=== PATIENT | female | born 1985 | race Caucasian/White ===

== ENCOUNTER 2020-05-24 18:19 | Emergency (ER) | payer OTHER ==
[~2020-05-24] VITALS: Ht 162.6 cm; Wt 120.8 kg
[2020-05-24 19:40] VITALS: Ht 162.6 cm; Wt 120.8 kg
[2020-05-24 21:11] VITALS: BP 172/82
== END 2020-05-24 21:11 | disposition home or self-care (01) ==
LOC: ED 18:19
DX: F07.81 Postconcussional syndrome (principal); Z88.5 Allergy status to narcotic agent; Z88.7 Allergy status to serum and vaccine
CPT/HCPCS: J1885